=== PATIENT | female | born 1935 | race Caucasian/White ===

== ENCOUNTER 2016-07-09 11:45 | Inpatient (IN) | payer MEDICARE, BC ==
--- NOTE | ~2016-07-09 | EKG ---
PATIENT: FELICITAS ELIZABETH UNIT #: [id number] Ventricular Rate: 96 BPM Atrial Rate: 96 BPM P-R Interval: 140 ms QRS Duration: 106 ms Q-T Interval: 398 ms QTC Calculation(Bezet): 502 ms P [place]: 20 degrees Calculated R [place]: -13 degrees Calculated T [place]: 146 degrees Diagnosis Line: Sinus rhythm with Premature atrial complexes Diagnosis Line: ST and T wave abnormality, consider anterolateral Diagnosis Line: ischemia Diagnosis Line: Prolonged QT Diagnosis Line: Abnormal ECG Diagnosis Line: When compared with ECG of 09-JUL-2016 11:17, Diagnosis Line: T wave inversion now evident in Anterior leads Diagnosis Line: Confirmed by KENNETH KRAMER MD ([id number]) on 07/12/2016 Diagnosis Line: 7:21:44 PM INTERPRETING MD: NIA FAY
--- NOTE | ~2016-07-09 | CO ---
Unit #: [id number] #: [id number] Patient: FELICITAS ELIZABETH [id number] [facility]. [place], [place] [address] [id number] I MR#: [id number] NAME: FELICITAS ELIZABETH ROOM: [facility] Age: 81 Sex: F Admission Date: 07/09/2016 : 1935 Attending Physician: Theo Simon M.D. Primary Care Physician: Mannie Starr Jr., M.D. CONSULTATION REPORT HISTORY OF PRESENT ILLNESS Ms. Elizabeth is an 81-year-old white female, who is followed closely nurse practitioner for chronic obstructive pulmonary disease and interstitial fibrosis. She was admitted from [facility] Emergency Room for increasing shortness of breath. A chest x-ray was consistent with pulmonary edema and an increasing high right diaphragm. These may be old findings, that were present on chest CT in 06/2016, but she does have some PND and orthopnea and leg swelling. She has had no cough, hemoptysis, or weight loss. REVIEW OF SYSTEMS Could not be adequately obtained due to the degree of dyspnea. PAST MEDICAL HISTORY Consistent with congestive heart failure, pulmonary hypertension, interstitial fibrosis, and deep venous thrombosis. PAST SURGICAL HISTORY She has had an appendectomy, hysterectomy, and right lower lobe lobectomy. MEDICATIONS Include warfarin, [place], multivitamin, amoxicillin, doxycycline, potassium, trimethoprim Robaxin, Lexapro, Lasix, home oxygen, Spiriva, and inhaled bronchodilators. ALLERGIES I am unsure of her allergies at this time. SOCIAL HISTORY She does not smoke or drink at this time. FAMILY HISTORY Noncontributory. PHYSICAL EXAMINATION GENERAL: She is a well-developed, but thin white female, chronically ill appearing. VITAL SIGNS: Blood pressure 100/50, heart rate was 116, respirations were over 20, temperature is 99.5, O2 sats were 69 on 3L. NEUROLOGIC: She is alert and oriented, showed no focal defects. She was asymptomatic. HEENT: Her eyes were normal to inspection. NECK: There is no supraclavicular or cervical adenopathy. LUNGS: There are diffused crackles throughout the entire AP Unit #: [id number] #: [id number] Patient: FELICITAS ELIZABETH. HEART: Systolic murmur is present with no rubs or gallops. ABDOMEN: Soft, nontender. No enlargement of the liver or spleen. EXTREMITIES: Nontender. Normal range of motion. No edema, clubbing, or cyanosis. PSYCHIATRIC: Her mood and affect are within normal limits. SKIN: Showed no rashes or inflammatory changes of the joint. DIAGNOSTIC STUDIES LABORATORY RESULTS: White count was 11.1, hemoglobin was 10.2, glucose 146, MB fraction 7.3, troponins negative. BMP is 789. INR was 6.4. IMAGING STUDIES: A chest x-ray was reported on earlier. She was treated with BiPAP in the emergency room and felt much better with noninvasive ventilation. IMPRESSION Acute pulmonary edema versus progressive pulmonary fibrosis. We will plan on aggressive diuresis over the next 24 hours and noninvasive ventilation is required by the patient's symptoms. I believes she wants to be a do not intubate at this time or do not resuscitate. We will defer to the attending physician. Thank you very much for allowing us to participate in her care. Dictated by... Lianna Berry/ibis TD: 07/09/2016 20:39 JOB #: [id number] CONSULTATION REPORT X Montrell Loera MD X CONSULTATION REPORT
--- NOTE | ~2016-07-09 | CR72 ---
[facility] A Service of [facility] RADIOLOGY TEXT RESULTS PATIENT: FELICITAS ELIZABETH LOCATION: [place] [id number] : [birth year] UNIT #: [id number] AGE: [address]: Theo Simon MD SEX: F ORDER DR: [id number] [facility] [address] [facility]. [place], [place] [address] [id number] MR#: [id number] Acc #: [id number] NAME: FELICITAS ELIZABETH : 1935 SEX: F STUDY DATE/TIME: 07/10/2016 6:22 UNIT: [facility] ROOM: [facility] STUDY DESCRIPTION: CR Chest Single View Portable Attending Physician: Theo Simon M.D. Ordering Physician: Physician Non-Staff Primary Care Physician: Mannie Starr Jr., M.D. MEDICAL IMAGING REPORT This report is preliminary unless electronic signature is present EXAM Frontal chest 07/10/2016 INDICATIONS Short of air, congestive heart failure, pleural effusion. Hemoptysis. Symptoms 3 weeks. TECHNIQUE Frontal chest compared 07/09/2016 FINDINGS Cardiac silhouette borderline in size and stable. Vertebroplasty changes present at the thoracolumbar junction. Extensive interstitial opacities remain present. Chronic eventration or elevation of the right hemidiaphragm. There may be a trace amount of pleural fluid or pleural thickening on the right. No pneumothorax. Overall presentation suspicious for underlying fibrosis and superimposed volume overload. Correlate with clinical presentation with follow up to clearing after appropriate therapy. IMPRESSION No significant change from 07/09/2016. No pneumothorax. Dictated by... Semaj Morton M.D. THIS IS AN ELECTRONICALLY VERIFIED REPORT Semaj Morton M.D. at 07/10/2016 2:02 PM Georgette TD: 07/10/2016 13:41 JOB #: [id number] [facility] A Service of [facility] RADIOLOGY TEXT RESULTS PATIENT: FELICITAS ELIZABETH [address]ATION: [address] [id number] [birth year] UNIT #: [id number] AGE: [address]: Theo Simon MD SEX: F ORDER DR: MEDICAL IMAGING REPORT COPY
--- NOTE | ~2016-07-09 | HP ---
Unit #: [id number] #: [id number] Patient: FELICITAS ELIZABETH [id number] [place], [place] [address] [id number] I MR#: [id number] NAME: FELICITAS ELIZABETH ROOM: [facility] Age: 81 Sex: F Admission Date: 07/09/2016 : 1935 Attending Physician: Ryan Beaulieu M.D. Primary Care Physician: Mannie Starr Jr., M.D. HISTORY AND PHYSICAL CHIEF COMPLAINT Shortness of breath. HISTORY OF PRESENT ILLNESS The patient is an 81-year-old female with a history of hypertension, anticoagulated for recurrent deep vein thrombosis in the left lower extremity and the valvular heart disease, brought to the emergency room complaining of the shortness of breath. The patient stated that the patient has been having shortness of breath for the last one week and was seen by the PCP/cardiology on last Monday and had echocardiogram. The patient stated the patient could not breathe and brought to the emergency room for worsening shortness of breath. The patient was found to be in acute respiratory failure in the emergency room and was started on the BiPAP. The patient was found to be 69% at 3 L of nasal cannula. The patient received the Bumex 2 mg IV in the emergency room. The patient was started on nitroglycerin drip for the CHF exacerbation. The patient's INR level came back up to 6.4 and received the vitamin K 10 mg p.o. x1 in the emergency room. The patient is being admitted for the above reasons. The patient denies any fever, chills, nausea or vomiting. The patient stated the patient has a valvular heart disease with regurgitation and was on medical treatment. The patient is a DNR status. PAST MEDICAL HISTORY History of an interstitial lung disease/COPD with pulmonary hypertension, history of a recurrent deep vein thrombosis on chronic anticoagulation, hyperlipidemia, depression, gastroesophageal reflux disease. PAST SURGICAL HISTORY Breast biopsy, lung surgery in 1967, arthroscopic left knee surgery. ALLERGIES Sulfa. HOME MEDICATIONS She is on [place], multivitamins, Coumadin, amoxicillin, doxycycline. [place], trimethoprim, Robaxin, Lexapro and Lasix and oxygen and Spiriva. FAMILY HISTORY Positive for leukemia. SOCIAL HISTORY The patient is currently living alone. She has no history of smoking, alcohol or any illicit drug abuse. Unit #: [id number] #: [id number] Patient: FELICITAS ELIZABETH REVIEW OF SYMPTOMS Fourteen-point review of symptoms performed and only pertinent positive findings as described above, remaining are negative. PHYSICAL EXAMINATION GENERAL APPEARANCE: On examination the patient is lying on a bed. Patient is on a facemask. VITAL SIGNS: The vitals are temperature 97.5, pulse 116, respiratory rate 24, blood pressure 100/48, sating 69% on 3 L of nasal canula at the time of arrival. HEENT: Head atraumatic, normocephalic. Pupils equal, round and reacting to light and accommodation. Extraocular movements are intact. Dry mucous membranes. NECK: Supple. Positive for JVD. LUNGS: Clear to auscultation and positive for rales and coarse breath sounds. HEART: Regular rate and rhythm. Positive for murmur. ABDOMEN: Soft, positive bowel sounds. EXTREMITIES: No cyanosis. No clubbing. NEUROLOGIC: The patient is alert, awake, oriented. No gross focal motor deficit. DIAGNOSTIC STUDIES LABORATORY DATA: Glucose 146, BUN 15, creatinine 0.9, sodium 136, potassium 4.6, chloride 102, bicarb 24, calcium 8.5 and CK total is 56, troponin 0.06, BNP 798, INR is 6.4, WBC is 11.1, hemoglobin 10.3, hematocrit 31.7, platelets 247, neutrophils 80.7. IMAGING: Chest x-ray shows CHF changes. CARDIOVASCULAR: The EKG shows a sinus tachycardia at a rate of 107 beats per minute with the PACs and left ventricular hypertrophy. QTc of 461. ASSESSMENT 1. Folre-xz-pznsxub diastolic congestive heart failure. 2. Acute respiratory failure requiring noninvasive ventilation with the BiPAP. 3. Coumadin toxicity. 4. Non-ST elevation myocardial infarction. PLAN 1. Plan to admit the patient to the ICU with the inpatient. 2. Patient will have a pulmonary consult and cardiology consult. 3. Patient will continue with the diuresis with the Bumex. 4. Patient had an echocardiogram last Monday and we will follow up with the official report of the echocardiogram. 5. Patient is a DNR status. 6. Patient has received the vitamin K for the Coumadin toxicity and hold the Coumadin tonight and repeat the levels again in the morning. 7. Repeat the CBC, BMP again in the morning. 8. Further recommendations will follow as more lab results are available. Unit #: [id number] #: [id number] Patient: FELICITAS ELIZABETH Dictated by Lianna Harris/kaitlin TD: 07/09/2016 19:52 JOB #: [id number] HISTORY AND PHYSICAL X X HISTORY AND PHYSICAL
--- NOTE | ~2016-07-09 | EKG ---
PATIENT: FELICITAS ELIZABETH UNIT #: [id number] Ventricular Rate: 92 BPM Atrial Rate: 92 BPM P-R Interval: 138 ms QRS Duration: 110 ms Q-T Interval: 380 ms QTC Calculation(Bezet): 469 ms P [place]: 8 degrees Calculated R [place]: -16 degrees Calculated T [place]: 129 degrees Diagnosis Line: Sinus rhythm Premature atrial complexes Diagnosis Line: Incomplete left bundle branch block Diagnosis Line: Minimal voltage criteria for LVH, may be normal Diagnosis Line: variant Diagnosis Line: T wave abnormality, consider lateral ischemia Diagnosis Line: Abnormal ECG Diagnosis Line: When compared with ECG of 10-JUL-2016 06:16, Diagnosis Line: (unconfirmed) Diagnosis Line: Premature atrial complexes are no longer Present Diagnosis Line: Incomplete left bundle branch block is now Present Diagnosis Line: T wave inversion no longer evident in Anterior Diagnosis Line: leads Diagnosis Line: Confirmed by KENENTH KRAMER MD ([id number]) on 07/12/2016 Diagnosis Line: 7:28:43 PM INTERPRETING MD: NIA FAY
--- NOTE | ~2016-07-09 | EKG ---
PATIENT: FELICITAS ELIZABETH UNIT #: [id number] Ventricular Rate: 107 BPM Atrial Rate: 107 BPM P-R Interval: 176 ms QRS Duration: 104 ms Q-T Interval: 346 ms QTC Calculation(Bezet): 461 ms Calculated R [place]: 2 degrees Calculated T [place]: 141 degrees Diagnosis Line: Sinus tachycardia with Premature atrial complexes Diagnosis Line: Left ventricular hypertrophy with repolarization Diagnosis Line: abnormality Diagnosis Line: Abnormal ECG Diagnosis Line: When compared with ECG of 24-MAR-2013 10:55, Diagnosis Line: Premature atrial complexes are now Present Diagnosis Line: ST now depressed in Lateral leads Diagnosis Line: T wave inversion now evident in Lateral leads Diagnosis Line: Confirmed by PROMISE NIELSON MD ([id number]) on Diagnosis Line: 07/09/2016 8:12:02 PM INTERPRETING MD: MICHAEL
--- NOTE | ~2016-07-09 | CO ---
Unit #: [id number] #: [id number] Patient: FELICITAS ELIZABETH [id number] [place], [place] [address] [id number] I MR#: [id number] NAME: FELICITAS ELIZABETH. ROOM: 553 Age: 81 Sex: F Admission Date: 07/09/2016 : 1935 Attending Physician: Armando Fields M.D. Primary Care Physician: Mannie Starr Jr., M.D. CONSULTATION REPORT REASON FOR CONSULTATION Evaluation for percutaneous aortic valve replacement or TAVR procedure. HISTORY OF PRESENT ILLNESS This is an 81-year-old female, who has history of pulmonary fibrosis and on home O2. She also has history of DVT in the past, but she has not seen a public works laborer for many years. She was admitted to the emergency room because of short of breath. She was found to have congestive heart failure. She has been treated medically. Then, she had an echo done showing EF of 35% and severe aortic stenosis. She had a cardiac catheterization performed by Dr. Rdaer today as a very mild CAD and ejection fraction again 30% and the gradient across the aortic valve is 42, and aortic stenosis again severe. I talked with the patient, she is getting progressive short of breath in recent months, but she thought it is due to her lung condition. She denies any chest pain, orthopnea, PND, palpitation, or syncope. PAST MEDICAL HISTORY Positive for interstitial lung disease with COPD, also has history of pulmonary hypertension, DVT, hyperlipidemia, and reflux disease. PAST SURGICAL HISTORY She has a breast biopsy, lung surgery in 1958, and arthroscope of her knee surgery. ALLERGIES She is allergic to sulfa. CURRENT MEDICATIONS She is on lisinopril 2.5 mg once a day, aspirin 81 mg once a day. Obviously, she is on oxygen 3 L/minute. She is on metoprolol 50 mg b.i.d., Lipitor 40 mg once a day. SOCIAL HISTORY She lives by herself. Does not smoke and does not drink. She has a son and daughter. Her daughter has power of director of partner marketing and I had long conversation with her. REVIEW OF SYSTEM A 14-point review of system was performed and only pertinent positive findings as described are above, remaining are negative. PHYSICAL EXAMINATION Unit #: [id number] #: [id number] Patient: FELICITAS ELIZABETH GENERAL: She is still in mild distress, because short of breath. VITAL SIGNS: Her heart rate is 80, blood pressure is 130/60, she is breathing at respiratory rate of 18. HEENT: Eyes conjunctivae normal. Pupils are round and reactive. Oral mucosa is moist. No central cyanosis. NECK: No thyromegaly. Carotid upstroke is delayed. JVD is still elevated up to the angle of the jaw. CHEST: She is breathing normal, clear on auscultation. CARDIAC: She has mild left parasternal lift. S1 normally heard aortic component. Second heart sound is diminished with an ejection systolic murmur with late peaking and absent aortic component of the second heart sound. ABDOMEN: Soft. Liver and spleen not enlarged. Abdominal aorta not palpable and guaiac test not indicated. EXTREMITIES: She has no pedal edema. 2+ bilateral femoral and dorsalis pedis vessels. Digits, no clubbing. SKIN: No rash or abnormal pigmentation. NEUROLOGIC: She is oriented x3. Mood is normal. Muscle tone in all extremities normal. DIAGNOSTIC STUDIES CARDIOVASCULAR STUDIES: EKG showing sinus rhythm with left ventricular hypertrophy. ASSESSMENT 1. Acute systolic congestive heart failure with an ejection fraction of 30%. 2. Severe aortic stenosis. 3. History of pulmonary fibrosis on home O2. 4. History of deep vein thrombosis. PLAN 1. The patient is at high risk for open heart surgery. Her STS risk is high. But she will be a good candidate for a percutaneous aortic valve replacement. 2. We continue to treat her heart failure at this moment and optimize her medically. I will make arrangements to have her CT of the chest, abdomen, and pelvis with 3D reconstruction in [facility]. At that time, obviously she will also have appointment with valve clinic. 3. After CT of the chest, obviously we will schedule her procedure. All the issues were explained to the patient. Dictated by... Lianna Almanza/ibis TD: 07/13/2016 00:59 JOB #: [id number] Unit #: [id number] #: [id number] Patient: FELICITAS ELIZABETH CONSULTATION REPORT X Keith Madera MD CONSULTATION REPORT
--- NOTE | ~2016-07-09 | CR72 ---
[facility] A Service of [facility] & [facility] RADIOLOGY TEXT RESULTS PATIENT: FELICITAS ELIZABETH LOCATION: [address] : [birth year] UNIT #: [id number] AGE: [address]: Theo Simon MD SEX: F ORDER DR: [id number] [facility] [address] [facility] [place], [place] [address] [id number] I MR#: [id number] Acc #: [id number] NAME: FELICITAS ELIZABETH. : 1935 SEX: F STUDY DATE/TIME: 07/09/2016 11:33 UNIT: [facility] ROOM: [facility] STUDY DESCRIPTION: CR Chest Single View Portable Attending Physician: Theo Simon M.D. Ordering Physician: Arian Stovall M.D. Primary Care Physician: Mannie Starr Jr., M.D. MEDICAL IMAGING REPORT This report is preliminary unless electronic signature is present EXAM Portable chest HISTORY Shortness of air for 1-2 weeks. COMPARISON 02/08/2016. FINDINGS A portable view of the chest was obtained. There are low lung volumes but there is diffuse interstitial prominence which is much more pronounced than on 02/08/2016. The heart size is normal. The bones are normal. IMPRESSION There is extensive interstitial prominence throughout both lungs new from 02/08/2016 and while there may be some background fibrosis this is probably due to some fluid overload or interstitial infiltrate. Dictated by... Isaias Henry M.D. THIS IS AN ELECTRONICALLY VERIFIED REPORT Isaias Henry M.D. at 07/10/2016 3:07 PM SB/alfred TD: 07/10/2016 06:02 JOB #: [id number] MEDICAL IMAGING REPORT [facility] A Service of [facility] & [facility] RADIOLOGY TEXT RESULTS PATIENT: FELICITAS ELIZABETH LOCATION: [address] : [birth year] UNIT #: [id number] AGE: [address]: Theo Simon MD SEX: F ORDER DR: DAVID
--- NOTE | ~2016-07-09 | CR72 ---
[facility] A Service of [facility] & [facility] RADIOLOGY TEXT RESULTS PATIENT: FELICITAS ELIZABETH LOCATION: [place] [address] : 33 UNIT #: [id number] AGE: [address]: Armando Fields MD SEX: F ORDER DR: [id number] [facility] [address] [facility]. [place], [place] [address] [id number] I MR#: [id number] Acc #: [id number] NAME: FELICITAS ELIZABETH. : 1935 SEX: F STUDY DATE/TIME: 07/11/2016 6:27 UNIT: [facility] ROOM: [facility] STUDY DESCRIPTION: CR Chest Single View Portable Attending Physician: Theo Simon M.D. Ordering Physician: Montrell Loera M.D. Primary Care Physician: Mannie Starr Jr., M.D. MEDICAL IMAGING REPORT This report is preliminary unless electronic signature is present EXAM Portable chest INDICATIONS Followup respiratory failure and infiltrates. FINDINGS Today's portal view of the chest is compared with yesterday's study. Diffuse bilateral infiltrates are present slightly improved. The right hemidiaphragm is slightly elevated. The heart size is normal. Dictated by... Isaias Henry M.D. THIS IS AN ELECTRONICALLY VERIFIED REPORT Isaias Henry M.D. at 07/11/2016 9:51 AM SB/trey TD: 07/11/2016 09:07 JOB #: [id number] MEDICAL IMAGING REPORT COPY
--- NOTE | ~2016-07-09 | DS ---
Unit #: [id number] #: [id number] Patient: FELICITAS ELIZABETH [id number] [address] [place], [place] [address] [id number] MR#: [id number] NAME: FELICITAS ELIZABETH. ROOM: 553 Age: 81 Sex: F Admission Date: 07/09/2016 : 1935 Discharge Date: 07/13/2016 Attending Physician: Armando Fields M.D. Primary Care Physician: Mannie Starr Jr., M.D. DISCHARGE SUMMARY DIAGNOSIS ON ADMISSION Congestive heart failure exacerbation. DIAGNOSES ON DISCHARGE 1. Chronic systolic congestive heart failure, ejection fraction 20% to 30%. 2. Valvular heart disease with severe aortic stenosis. 3. Acute on chronic respiratory failure, improved. 4. Chronic respiratory failure on home O2. 5. Chronic obstructive pulmonary disease. 6. Pulmonary fibrosis. 7. History of recurrent deep venous thrombosis. 8. Gastroesophageal reflux disease. 9. Hyperlipidemia. 10. Depression. 11. Cardiac cath with normal coronary arteries. CONSULTATIONS 1. Dr. Rader and group in cardiac consultation. 2. Dr. Loera in pulmonary consultation. DIAGNOSTIC STUDIES LABORATORY: The patient's creatinine is 1, sodium 141, potassium 4. TSH is 0.96. WBC is 8.6, hemoglobin 9.3, platelet count 238,000. CARDIOVASCULAR: The patient had a cardiac cath done which revealed that patient's ejection fraction was 20% to 30%. Coronary arteries were normal. An aortic stenosis was very significant. HOSPITAL COURSE An 81-year-old female was admitted to [facility] with shortness of air. Details are as per admission H and P. The patient was treated for CHF exacerbation. The patient responded well to diuresis and is on her baseline of 3.5 L of home O2. The patient had a cardiac cath done which revealed severe aortic stenosis. She will be evaluated for TAVR on outpatient basis. Today patient is comfortable, is not in any acute distress, wants to go to rehab. PHYSICAL EXAMINATION VITAL SIGNS: Reveal temperature of 97.6, pulse is 65 per minute. RESPIRATORY: Revealed decreased breath sounds bilaterally. There are no wheezes or crackles. Unit #: [id number] #: [id number] Patient: FELICITAS ELIZABETH HEART: Regular rate and rhythm. S1, S2. ABDOMEN: Soft, nontender. Bowel sounds are present in all four quadrants. NEUROLOGIC: The patient is alert to person, place, and time. Strength is 4+ bilaterally. SKIN: Warm and dry. RECOMMENDATIONS ON DISCHARGE Condition is stable. Activity is as tolerated. MEDICATIONS 1. Spiriva one inhalation daily. 2. Lexapro 20 mg subcutaneous daily. 3. Coumadin 5 mg p.o. daily. 4. Lovenox 60 mg subcutaneous daily discontinue when INR greater than or equal to 2. 5. Senokot S two tablets p.o. nightly. 6. MiraLax 17 g p.o. daily. 7. Oxygen 3.5 L. 8. Lasix 40 mg p.o. every morning. 9. Lipitor 40 mg p.o. nightly. 10. Lisinopril 2.5 mg p.o. daily. 11. Multivitamin one tablet p.o. daily. 12. Enteric coated aspirin 81 mg p.o. daily. 13. Lortab 7.5 mg p.o. q.8 hours p.r.n. 14. Trimethoprim 100 mg p.o. daily. 15. Robaxin 500 mg p.o. daily p.r.n. DISPOSITION The patient will be discharged to rehab. Please feel free to ask us if there are any questions regarding this hospitalization. Please make note that patient will need to followup with [facility] for transcatheter aortic valve replacement. Dr. Rader's office will schedule that appointment. Please make sure that appointment is scheduled and that patient follows up. The plan has been discussed with patient's daughter in detail who showed complete understanding. Dictated by... Lianna Mathew/debby TD: 07/13/2016 11:50 JOB #: [id number] CC: Mannie Starr Jr., M.D. Unit #: [id number] #: [id number] Patient: FELICITAS ELIZABETH DISCHARGE SUMMARY X Armando Fields MD DISCHARGE SUMMARY
[2016-07-09 11:41] LABS: BASOPHIL# 0.1 X10e3 (0-0.3); BASOPHIL% 0.7 % (0-2.5); EOSINOPHIL# 0.1 X10e3 (0-0.7); EOSINOPHIL% 0.9 % (0.0-7.0); HEMATOCRIT 31.7 % (35.0-45.0); HEMOGLOBIN 10.3 gm/dL (12.0-16.0); LYMPHOCYTE% 8.8 % (17.0-45.0); MEAN CELL VOLUME 91.4 FL (83-96); MEAN CORPUSCULAR HEMOGLOBIN 29.8 PG (28-34); MEAN CORPUSCULAR HGB CONC 32.6 g/dL (30-36); MEAN PLATELET VOLUME 7.9 FL (6.5-11.5); MONOCYTE% 8.9 % (3.0-12.0); NEUTROPHIL% 80.7 % (40-75); PLATELET COUNT 247 X10e3 (140-420); RED BLOOD COUNT 3.47 X10e (3.90-5.30); RED CELL DISTRIBUTION WIDTH 15.2 % (11.0-15.5); WHITE BLOOD COUNT 11.1 X10e3 (4.0-10.5)
[2016-07-09 11:43] LABS: DIFF IND NO
[~2016-07-09 11:45] MED LIST: ACETAMINOPHEN PO; ACIPHEX20 MG PO; ADVAIR; ADVAIR 250-501 EACH IH; ALBUTEROL17 G1; AMOXICILLIN500 M1 PO; ANEXSIA 5/325 M1 TA1 PO; ATENOLOL PO; ATIVAN PO; ATIVAN2 MG PO; AUGMENTIN PO; BIAXIN PO; CEFPODOXIME PR100 MG PO; CENTRUM SILVER PO; CERTAGEN PO; CIPRO PO; CLINDAMYCIN HC300 MG PO; COLACE PO; COMBIVENT INH14.7 GM INH; COUMADIN PO; COUMADIN5 MG PO; DARVOCET-N 1001 TA1 PO; DARVOCET-N 1001 TAB PO; DOXYCYCLINE HY100 M3 PO; FLEXERIL10 MG PO; HYDROCODON-ACE1 EAC9 PO; HYDROCODON-ACE1 EACH PO; IRON PO; IRON1 TA1; LASIX; LASIX20 MG PO; LEXAPRO PO; LORTAB 10-5001 EACH; MACROBID 100 M100 MG; MULTI-VITAMIN1 EAC1 PO; MULTIVITAMIN1 UDCAP PO; OMEPRAZOLE40 MG PO; OXYGEN; PERCOCET5/325 PO; PERCOCET7.5 PO; POTASSIUM CHLO10 MEQ PO; ROBAXIN500 MG PO; SPIRIVA18 MCG INH; VANTIN200 MG PO; ZITHROMAX1 G/PKT; [UNRECOGNIZED DRUG - OTHER]; [UNRECOGNIZED DRUG - OTHER] PO; [UNRECOGNIZED DRUG - REMARK]
[2016-07-09 11:56] LABS: POC - CKMB 7.3 ng/mL (0.0-7.9); POC - TROPONIN <0.05 ng/mL (<=0.05)
[2016-07-09 12:06] LABS: BLOOD UREA NITROGEN 15 mg/dL (9-23); BUN/CREATININE RATIO 18.75; CALCIUM SERUM 8.5 mg/dL (8.4-10.2); CARBON DIOXIDE 24 mmol/L (22-31); CHLORIDE 102 mmol/L (100-111); CREATININE SERUM 0.8 mg/dL (0.6-1.4); GLOM FILT RATE Estimated ABOVE60 mL/min (>60); GLUCOSE FASTING 146 mg/dL (70-110); POTASSIUM 4.6 mmol/L (3.5-5.1); SODIUM 136 mmol/L (135-145)
[2016-07-09 12:07] LABS: PARTIAL THROMBOPLASTIN TIME 47.4 SECONDS (23.5-31.3); PROTHROMBIN TIME (PATIENT) 71.5 SECONDS (9.6-11.5)
[2016-07-09 12:11] LABS: INR 6.4
[2016-07-09] MEDS ORDERED: HYDROCODON-ACE1 EAC9 PO (14:12)
[2016-07-09] MEDS ORDERED: MULTI VITAMIN1 EACH PO (14:13)
[2016-07-09] MEDS ORDERED: COUMADIN5 MG PO (14:13)
[2016-07-09] MEDS ORDERED: DOXYCYCLINE HY100 M3 PO (14:14)
[2016-07-09] MEDS ORDERED: AMOXICILLIN500 M1 PO (14:14)
[2016-07-09] MEDS ORDERED: KLOR-CON SPRIN10 MEQ PO (14:15)
[2016-07-09] MEDS ORDERED: TRIMPEX100 MG PO (14:17)
[2016-07-09] MEDS ORDERED: ROBAXIN500 MG PO (14:17)
[2016-07-09] MEDS ORDERED: LEXAPRO20 MG PO (14:18)
[2016-07-09] MEDS ORDERED: LASIX PO (14:20)
[2016-07-09] MEDS ORDERED: OXYGEN (14:22)
[2016-07-09] MEDS ORDERED: [UNRECOGNIZED DRUG - OTHER] (14:23)
[2016-07-09] MEDS ORDERED: SPIRIVA (14:24)
[2016-07-09 17:06] LABS: CK TOTAL 56 IU/L (26-140)
[2016-07-09 23:42] LABS: %MB 3.6 % (0.0-4.0); MB 2.2 ng/ml
[2016-07-10 04:39] LABS: BASOPHIL% 0.3 % (0-2.5); EOSINOPHIL% 0.2 % (0.0-7.0); HEMATOCRIT 30.5 % (35.0-45.0); LYMPHOCYTE# 0.7 X10e3 (1.0-3.5); LYMPHOCYTE% 6.7 % (17.0-45.0); MEAN CELL VOLUME 90.1 FL (83-96); MEAN CORPUSCULAR HEMOGLOBIN 29.5 PG (28-34); MEAN CORPUSCULAR HGB CONC 32.8 g/dL (30-36); MEAN PLATELET VOLUME 7.8 FL (6.5-11.5); MONOCYTE# 0.2 X10e3 (0-1.0); MONOCYTE% 1.7 % (3.0-12.0); NEUTROPHIL# 9.1 X10e3 (1.5-7.1); NEUTROPHIL% 91.1 % (40-75); PLATELET COUNT 261 X10e3 (140-420); RED BLOOD COUNT 3.39 X10e (3.90-5.30); RED CELL DISTRIBUTION WIDTH 14.8 % (11.0-15.5)
[2016-07-10 04:43] LABS: DIFF IND NO
[2016-07-10 04:54] LABS: INR 1.7; PARTIAL THROMBOPLASTIN TIME 36.8 SECONDS (23.5-31.3)
[2016-07-10 04:56] LABS: PROTHROMBIN TIME (PATIENT) 17.8 SECONDS (9.6-11.5)
[2016-07-10 05:17] LABS: BLOOD UREA NITROGEN 15 mg/dL (9-23); BUN/CREATININE RATIO 18.75; CALCIUM SERUM 8.3 mg/dL (8.4-10.2); CARBON DIOXIDE 30 mmol/L (22-31); CHLORIDE 99 mmol/L (100-111); CHOLESTEROL 219 mg/dL (0-200); CREATININE SERUM 0.8 mg/dL (0.6-1.4); GLOM FILT RATE Estimated ABOVE60 mL/min (>60); GLUCOSE FASTING 155 mg/dL (70-110); HDL CHOLESTEROL 61 mg/dL (35-95); LDL/HDL RATIO 2 RATIO (0-4); POTASSIUM 4.1 mmol/L (3.5-5.1); SODIUM 136 mmol/L (135-145); TRIGLYCERIDES 82 mg/dL (10-160)
[2016-07-10 05:21] LABS: LDL CHOLESTEROL 142 mg/dL (-130)
[2016-07-11 07:17] LABS: BASOPHIL% 0.1 % (0-2.5); LYMPHOCYTE# 0.8 X10e3 (1.0-3.5); LYMPHOCYTE% 8.2 % (17.0-45.0); MEAN CELL VOLUME 89.7 FL (83-96); MEAN CORPUSCULAR HEMOGLOBIN 29.7 PG (28-34); MEAN CORPUSCULAR HGB CONC 33.1 g/dL (30-36); MEAN PLATELET VOLUME 7.7 FL (6.5-11.5); MONOCYTE# 0.4 X10e3 (0-1.0); NEUTROPHIL# 8.5 X10e3 (1.5-7.1); NEUTROPHIL% 87.7 % (40-75); PLATELET COUNT 293 X10e3 (140-420); RED BLOOD COUNT 3.35 X10e (3.90-5.30); RED CELL DISTRIBUTION WIDTH 15.1 % (11.0-15.5); WHITE BLOOD COUNT 9.7 X10e3 (4.0-10.5)
[2016-07-11 07:19] LABS: DIFF IND NO
[2016-07-11 07:34] LABS: INR 1.2; PARTIAL THROMBOPLASTIN TIME 29.2 SECONDS (23.5-31.3); PROTHROMBIN TIME (PATIENT) 12.4 SECONDS (9.6-11.5)
[2016-07-11 07:52] LABS: BUN/CREATININE RATIO 30.9; CALCIUM SERUM 8.8 mg/dL (8.4-10.2); CREATININE SERUM 1.1 mg/dL (0.6-1.4); GLOM FILT RATE Estimated 50.4 mL/min (>60); POTASSIUM 3.9 mmol/L (3.5-5.1)
[2016-07-12 05:27] LABS: BASOPHIL% 0.1 % (0-2.5); EOSINOPHIL# 0.1 X10e3 (0-0.7); EOSINOPHIL% 0.9 % (0.0-7.0); HEMOGLOBIN 10.4 gm/dL (12.0-16.0); LYMPHOCYTE# 2.1 X10e3 (1.0-3.5); MEAN CELL VOLUME 90.2 FL (83-96); MEAN CORPUSCULAR HEMOGLOBIN 29.4 PG (28-34); MEAN CORPUSCULAR HGB CONC 32.5 g/dL (30-36); MEAN PLATELET VOLUME 7.5 FL (6.5-11.5); MONOCYTE# 1.1 X10e3 (0-1.0); NEUTROPHIL# 7.7 X10e3 (1.5-7.1); PLATELET COUNT 298 X10e3 (140-420); RED BLOOD COUNT 3.55 X10e (3.90-5.30); RED CELL DISTRIBUTION WIDTH 14.8 % (11.0-15.5)
[2016-07-12 05:31] LABS: DIFF IND NO
[2016-07-12 05:37] LABS: INR 1.1; PROTHROMBIN TIME (PATIENT) 11.9 SECONDS (9.6-11.5)
[2016-07-12 06:32] LABS: BUN/CREATININE RATIO 33.33; CALCIUM SERUM 8.8 mg/dL (8.4-10.2); CREATININE SERUM 1.2 mg/dL (0.6-1.4); GLOM FILT RATE Estimated 45.6 mL/min (>60); POTASSIUM 3.9 mmol/L (3.5-5.1)
[2016-07-13 06:30] LABS: BASOPHIL% 0.1 % (0-2.5); EOSINOPHIL# 0.3 X10e3 (0-0.7); EOSINOPHIL% 3.8 % (0.0-7.0); HEMOGLOBIN 9.3 gm/dL (12.0-16.0); LYMPHOCYTE# 1.6 X10e3 (1.0-3.5); MEAN CELL VOLUME 90.5 FL (83-96); MEAN CORPUSCULAR HEMOGLOBIN 30.1 PG (28-34); MEAN CORPUSCULAR HGB CONC 33.2 g/dL (30-36); MEAN PLATELET VOLUME 7.3 FL (6.5-11.5); MONOCYTE# 1.1 X10e3 (0-1.0); MONOCYTE% 12.7 % (3.0-12.0); NEUTROPHIL# 5.5 X10e3 (1.5-7.1); NEUTROPHIL% 64.4 % (40-75); PLATELET COUNT 238 X10e3 (140-420); WHITE BLOOD COUNT 8.6 X10e3 (4.0-10.5)
[2016-07-13 06:35] LABS: DIFF IND NO
[2016-07-13 06:37] LABS: INR 1.1; PROTHROMBIN TIME (PATIENT) 11.7 SECONDS (9.6-11.5)
[2016-07-13 07:06] LABS: CALCIUM SERUM 8.6 mg/dL (8.4-10.2); GLOM FILT RATE Estimated 56.3 mL/min (>60)
== END 2016-07-13 17:55 | DRG 291 ==
LOC: CED 11:45 → CEDOF 15:33 → CICCU3 17:39 → C5B 07-11 20:45
PROVIDERS: Emergency Medicine; Internal Medicine; Internal Medicine Cardiovascular Disease; Nurse Practitioner Family
DX: I50.23 Acute on chronic systolic (congestive) heart failure (principal); J96.21 Acute and chronic respiratory failure with hypoxia; I27.2 Other secondary pulmonary hypertension; T45.515A Adverse effect of anticoagulants, initial encounter; Z66 Do not resuscitate; J44.9 Chronic obstructive pulmonary disease, unspecified; Z86.718 Personal history of other venous thrombosis and embolism; Z79.01 Long term (current) use of anticoagulants; E78.5 Hyperlipidemia, unspecified; F32.9 Major depressive disorder, single episode, unspecified; K21.9 Gastro-esophageal reflux disease without esophagitis; Z88.2 Allergy status to sulfonamides; Z99.81 Dependence on supplemental oxygen; J84.10 Pulmonary fibrosis, unspecified; I35.0 Nonrheumatic aortic (valve) stenosis
CPT/HCPCS: 71010; 80048; 80061; 82550; 82553; 82810; 82947; 83880; 84443; 84484; 85025; 85347; 85610; 85730; 93005; 94640; 94660; 94664; 94760; 96374; 96375; 97116; 97162; 97167; 97530; 97535; 99291; C1769; C1887; G8978-GP; G8979-GP; G8987-GO; G8988-GO; J1644; J1650; J1940; J2250; J2930; J3010; J3430